=== PATIENT | female | born 1970 | race Caucasian/White ===

== ENCOUNTER 2025-07-23 09:14 | Emergency (ER) | payer BC, SELFPAY ==
[2025-07-23 09:22] VITALS: BP 115/57; PULSE 82; RESP 18; TEMP 36.9; O2SAT 99; BMI 25.0
[2025-07-23 10:17] LABS: Culture Indicated Urine Specimen Cultured
--- NOTE | 2025-07-23 10:36 | ED.FEMALEGU ---
HPI - Female Genitourinary General Chief complaint: Urogenital-Female Stated complaint: Possible bladder or Kidney infection x 5 days Time Seen by Provider: 07/23/25 10:29 Source: patient Mode of arrival: Ambulatory History of Present Illness HPI Narrative: 54-year-old female patient, otherwise healthy, who complains of dysuria, frequency and chills off and on for 4 days. No flank pain. Related Data Previous Rx's ?Medication ?Instructions ?Recorded fluconazole 100 mg tablet 100 mg PO ONCE HS 0 days #1 tab 07/23/25 nitrofurantoin 100 mg PO BID 5 days #10 caps 07/23/25 monohydrate/macrocrystals 100 mg capsule (Macrobid) Allergies Allergy/AdvReac Type Severity Reaction Status Date / Time No Known Drug Allergies Allergy Verified 07/23/25 09:22 Review of Systems Review of Systems ROS Unobtainable: All systems reviewed & are unremarkable except as noted in HPI and below Constitutional Constitutional: Reports as per HPI Genitourinary Genitourinary: Reports as per HPI Exam Narrative Exam Narrative: General: Alert and conversant. No distress. Appears well nourished and well hydrated Lungs: Nonlabored respiration. Abdomen: Soft, nontender with no distention or masses. Normal bowel sounds. No rebound or guarding no CVA tenderness. Musculoskeletal: Exam of the extremities, axial spine and ribcage reveals no deformity, bony tenderness or swelling. Range of motion intact Neuro: Alert and oriented. Cranial nerves, motor, sensory and cerebellar all grossly intact. No focal deficit Skin: Warm and normal color. No rashes Psychological: Normal affect and interaction. No evidence of delusion or psychosis. Normal mood. Initial Vital Signs Initial Vital Signs: Vital Signs Temperature 98.4 F 07/23/25 09:22 Pulse Rate 82 07/23/25 09:22 Respiratory Rate 18 07/23/25 09:22 Blood Pressure 115/57 L 07/23/25 09:22 Pulse Oximetry 99 07/23/25 09:22 Oxygen Delivery Method Room Air 07/23/25 09:22 Course Orders Ordered: ED Orders 07/23/25 10:00 Urine Culture Stat Urine Microscopic Stat Vital Signs Vital signs: Vital Signs - 8 hr 07/23/25 09:22 07/23/25 10:59 07/23/25 10:59 Temperature 98.4 F Pulse Rate 82 Respiratory Rate 18 Blood Pressure 115/57 L 95/50 L Pulse Oximetry 99 100 Oxygen Delivery Method Room Air 07/23/25 11:00 07/23/25 11:01 07/23/25 11:01 Temperature Pulse Rate 75 75 Respiratory Rate Blood Pressure 107/59 L Pulse Oximetry 100 100 Oxygen Delivery Method MDM - Female Genitourinary Lab Data Labs: Lab Results 07/23/25 Range/Units 10:00 Urine RBC 10-30/hpf H (0-5/HPF) Urine WBC >100/hpf H (0-5/HPF) Ur Squamous Epith Cells None seen (0-5/HPF) Urine Bacteria Many (>30) H (None) Ur Culture Indicated? Specimen cultured Vol Urine Centrifuged 10ml (spun) Urine Dip Bedside Urine Glucose Negative Bedside Urine Bilirubin - Negative Bedside Urine Ketone - Negative Urine Specific [place] 1.015 Bedside Urine Occult Blood ++ Bedside Urine pH 6.0 Bedside Urine Protein + 30 Bedside Urine Urobilinogen -0.2 Bedside Urine Nitrite + Positive Bedside Urine Leukocytes +++ 500 Esterase MDM Narrative Medical decision making narrative: Symptoms and urinalysis consistent with uncomplicated UTI. Patient will be treated with Macrobid and urine culture sent. She also requested yeast prevention so I gave her 1 dose of Diflucan prescription. Follow up as needed if not improving Discharge Plan Departure Patient Disposition: Home Clinical Impression: Urinary tract infection Instructions: DI for Urinary Tract Infection (UTI) Activity Restrictions/Additional Instructions: Hydration and supportive care. Prescription for Macrobid. Urine culture is sent. Also preventive prescription of Diflucan to prevent yeast infection. Prescriptions: New nitrofurantoin monohyd/m-cryst [Macrobid] 100 mg capsule 100 mg PO BID 5 Days Qty: 10 0RF Rx Instructions: must administer with a meal/food fluconazole 100 mg tablet 100 mg PO ONCE HS Qty: 1 0RF Stand Alone Forms: Patient Portal/API
[2025-07-23 10:59] VITALS: BP 95/50; O2SAT 100
[2025-07-23 11:00] VITALS: PULSE 75; O2SAT 100
[2025-07-23 11:01] VITALS: BP 107/59; PULSE 75; O2SAT 100
== END 2025-07-23 11:14 | disposition home or self-care (01) ==
PROVIDERS: Emergency Provider Emergency Medicine
DX: N39.0 Urinary tract infection, site not specified (principal)
CPT/HCPCS: 81003; 81015; 87077; 87086; 87186; 99282